=== PATIENT | male | born 1970 | race African-American/Black ===

== ENCOUNTER 2016-11-21 06:43 | Emergency (ER) | payer OTHER ==
[~2016-11-21] VITALS: Ht 175.3 cm; Wt 65.8 kg
[~2016-11-21 06:43] MED LIST: AMLODIPINE BES2.5 MG ORAL; AZITHROMYCIN250 MG ORAL; BENADRYL25 MG ORAL; CHERATUSSIN AC118 ML PO; ERYTHROMYCIN3.5 GM BOTH EYES; HYDROCHLOROTH12.5 M2 ORAL; IBUPROFEN600 MG ORAL; INDOMETHACIN75 MG ORAL; LISINOPRIL5 MG ORAL; PERCOCET 5-3251 EACH ORAL; PERMETHRIN60 GM TOPIC; PREDNISONE20 MG ORAL; VIBRAMYCIN100 MG ORAL
[2016-11-21] MEDS ORDERED: SIMVASTATIN10 MG ORAL (07:03)
[2016-11-21] MEDS ORDERED: INDOMETHACIN75 MG ORAL (07:09)
[2016-11-21] MEDS ORDERED: Ketorolac 60mg Inj IM ONE (07:15)
--- NOTE | 2016-11-21 07:18 | Emergency Room Report ---
History of Present Illness General Chief Complaint: Pain Source: Patient Present Illness HPI [id number] presents with 2 days left knee pain. Worse with waking. No reduced ROM because of pain. Denies fever/chills, overlying erythema/rash. History of gout. Improves with indomethacin. Recently ate "a bunch of oxtail." Exacerbations usually caused by dietary indiscretion. Allergies: Coded Allergies: NO KNOWN ALLERGIES (Unverified Allergy, Unknown, 07/07/15) Patient History Past Medical History: other - gout Past Surgical History: none Pertinent Family History: none Social History: Denies: alcohol use, drug use, smoking Immunizations: UTD Reviewed Nursing Documentation: PMH: Agreed, PSxH: Agreed Nursing Documentation-PMH Past Medical History: No History, Except For Hx Hypertension: Yes Hx Pacemaker: No Hx Asthma: No Hx COPD: No Hx Diabetes: No Hx Cancer: No Hx Gastrointestinal Problems: No Hx Dialysis: No Hx Cerebrovascular Accident: No Hx Seizures: No Review of Systems All Other Systems: negative except mentioned in HPI Physical Exam Vital Signs Date Time Temp Pulse Resp B/P Pulse Ox O2 Delivery O2 Flow Rate FiO2 11/21/16 06:44 97.9 104 19 143/81 98 Room Air Sp02 EP Interpretation: reviewed, normal General Appearance: normal inspection, well appearing, no apparent distress, alert, GCS 15, non-toxic Head: normocephalic, atraumatic Eyes: bilateral eye EOMI, bilateral eye PERRL ENT: normal ENT inspection, hearing grossly normal, normal voice Neck: normal inspection, full range of motion, supple, no bony tend Respiratory: normal inspection, lungs clear, normal breath sounds, no respiratory distress, no retraction, no wheezing Cardiovascular #1: regular rate, rhythm, no edema Gastrointestinal: normal inspection, normal bowel sounds, non tender, soft, no guarding, no hernia Genitourinary: no CVA tenderness Musculoskeletal: other - Left knee: No swelling or effusion. No overlying erythema. Mild warmth to palpation. No reduced ROM Neurologic: normal inspection, alert, oriented x3, responsive, edge burnisher III-XII nml as tested, motor strength/tone normal, speech normal Psychiatric: normal inspection, judgement/insight normal, mood/affect normal Skin: normal inspection, normal color, no rash Medical Decision Making Diagnostic Impression: Primary Impression: Knee pain, left Qualified Codes: M25.562 - Pain in left knee; G89.29 - Other chronic pain ER Course VSS. Afebrile No cellulitis No effusion No pain with movement Low suspicion for acute septic joint Likely gouty flare given PMHx and recent dietary indiscretion Rx Indomethacin Understands to return for fever/chills, worse pain/swelling DC home Last Vital Signs Date Time Temp Pulse Resp B/P Pulse Ox O2 Delivery O2 Flow Rate FiO2 11/21/16 06:44 97.9 104 19 143/81 98 Room Air Status: improved Disposition: HOME, SELF-CARE Condition: Improved Scripts Indomethacin* (INDOMETHACIN*) 75 Mg Capsule.er 75 MG ORAL TWICE A DAY for 15 Days, #30 CAP 0 Refills Prov: MERRITT GAXIOLA M.D. 11/21/16 Additional Instructions: - Take indomethacin as prescribed - If pain worsens, knee gets more swollen, you have fever, return immediately to ER MERRITT GAXIOLA M.D. Nov 21, 2016 07:18
[2016-11-21 07:48] VITALS: BP 143/81
== END 2016-11-21 07:48 | disposition home or self-care (01) ==
LOC: EMR 07:00
DX: M25.562 Pain in left knee (principal); G89.29 Other chronic pain; I10 Essential (primary) hypertension
CPT/HCPCS: 96372; 99283

== ENCOUNTER 2017-03-04 07:30 | Emergency (ER) | payer OTHER ==
[~2017-03-04] VITALS: Ht 175.3 cm; Wt 108.0 kg
[~2017-03-04 07:30] MED LIST changes: +SIMVASTATIN10 MG ORAL
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
[2017-03-04 09:47] VITALS: BP 132/85
[2017-03-04 09:49] VITALS: BP 137/79
== END 2017-03-04 09:51 | disposition home or self-care (01) ==
LOC: EMR 08:00
DX: S16.1XXA Strain of muscle, fascia and tendon at neck level, initial encounter (principal); V43.52XA Car driver injured in collision with other type car in traffic accident, initial encounter; Y92.481 Parking lot as the place of occurrence of the external cause; I10 Essential (primary) hypertension; M50.31 Other cervical disc degeneration, high cervical region
CPT/HCPCS: 72040; 99283

== ENCOUNTER 2017-06-28 22:18 | Emergency (ER) | payer OTHER ==
[~2017-06-28] VITALS: Ht 175.3 cm; Wt 104.3 kg
[2017-06-28 22:30] VITALS: BP 155/101
--- NOTE | 2017-06-28 22:59 | Emergency Room Report ---
History of Present Illness General Chief Complaint: Skin Rash/Abscess Source: Patient Present Illness HPI Patient initially presents with complaints of rash in the upper arm, left flank abdominal area Ongoing for the past 2 days He feels area is more itchy after taking a shower Denies any fevers or chills Patient also complains of a cough and feels that he has flulike symptoms Denies any sore throat denies any vomiting or diarrhea Allergies: Coded Allergies: NO KNOWN ALLERGIES (Unverified Allergy, Unknown, 07/07/15) Patient History Past Medical History: see triage record Pertinent Family History: none Reviewed Nursing Documentation: PMH: Agreed, PSxH: Agreed Nursing Documentation-PMH Hx Hypertension: Yes Hx Pacemaker: No Hx Asthma: No Hx COPD: No Hx Diabetes: No Hx Cancer: No Hx Gastrointestinal Problems: No Hx Dialysis: No Hx Cerebrovascular Accident: No Hx Seizures: No Review of Systems All Other Systems: negative except mentioned in HPI Physical Exam Vital Signs Date Time Temp Pulse Resp B/P (MAP) Pulse Ox O2 Delivery O2 Flow Rate FiO2 06/28/17 22:27 98.6 68 20 155/101 96 Room Air Sp02 EP Interpretation: reviewed, normal General Appearance: well appearing, no apparent distress Head: normocephalic, atraumatic Eyes: bilateral eye PERRL, bilateral eye EOMI ENT: normal pharynx Neck: full range of motion, supple, no meningismus, no bony tend Respiratory: chest non-tender, lungs clear Cardiovascular #1: regular rate, rhythm, no edema Gastrointestinal: non tender, soft Musculoskeletal: normal inspection Neurologic: alert, oriented x3, responsive Skin: other - Small areas of raised rash involving the upper shoulder, no obvious scab formation no obvious linearity to it, is also several areas of small raised red lesions with scab formation in the left abdomen, no obvious dermatomal pathology, Lymphatic: no adenopathy Medical Decision Making Diagnostic Impression: Primary Impression: Rash and other nonspecific skin eruption Additional Impression: Bronchitis ER Course Patient findings are in line with a nonspecific dermatitis he reports using a new soap possible insect bite as well he reports that he was given a cream last time which helped him Patient's lung sounds are clear appears to have likely viral upper respiratory infection and will have symptomatic treatment Last Vital Signs Date Time Temp Pulse Resp B/P (MAP) Pulse Ox O2 Delivery O2 Flow Rate FiO2 06/28/17 22:27 98.6 68 20 155/101 96 Room Air Status: unchanged Disposition: HOME, SELF-CARE Condition: Stable Additional Instructions: Patient is provided with the discharge instructions notified to follow up with primary doctor in the next 2-3 days otherwise return to the er with any worsening symptoms. Please note that this report is being documented using [employer] technology. This can lead to erroneous entry secondary to incorrect interpretation by the dictating instrument. ROSELINE MASTERSON D.O. Jun 28, 2017 22:59
[2017-06-28] MEDS ORDERED: PERMETHRIN60 GM TOPIC (23:01)
[2017-06-28] MEDS ORDERED: BENADRYL25 MG ORAL (23:01)
[2017-06-28] MEDS ORDERED: ROBITUSSIN COU237 M1 PO (23:01)
[2017-06-28 23:05] VITALS: BP 160/95
== END 2017-06-28 23:05 | disposition home or self-care (01) ==
LOC: EMR 22:41
DX: R21 Rash and other nonspecific skin eruption (principal); J40 Bronchitis, not specified as acute or chronic; I10 Essential (primary) hypertension
CPT/HCPCS: 99282

== ENCOUNTER 2017-11-19 14:12 | Emergency (ER) | payer OTHER ==
[~2017-11-19] VITALS: Ht 175.3 cm; Wt 108.9 kg
[~2017-11-19 14:12] MED LIST changes: +ROBITUSSIN COU237 M1 PO
[2017-11-19 14:41] VITALS: BP 145/103
--- NOTE | 2017-11-19 15:40 | Emergency Room Report ---
History of Present Illness General Chief Complaint: Earache Source: Patient Present Illness HPI 46-year-old male presents to the emergency department complaining of 10 out of 10 in severity left ear pain 3 days. Patient reports he felt his ear pop about a week ago and did not think anything of it. Patient reports some hot flashes he also reports pain radiating up into his head and and is jaw left side of his mouth. Patient states that initially he thought maybe he had a tooth infection he was evaluated by his dentist x-rays were performed and no infection was found. Denies drainage/discharge from the ear, external ear tenderness or recent trauma to the ear. Patient denies neck or back pain.Denies sore throat, high fevers, lethargy, neck pain/stiffness, irritability, photophobia dehydration, N/V/D. Denies Cp, Palpitations, LOC, AMS, seizures, paresthesias, or changes in Hearing or vision, no Sudden severe CABRAELS. Allergies: Coded Allergies: NO KNOWN ALLERGIES (Unverified Allergy, Unknown, 07/07/15) Patient History Past Medical History: see triage record Past Surgical History: none Pertinent Family History: none Reviewed Nursing Documentation: PMH: Agreed; PSxH: Agreed Nursing Documentation-PMH Past Medical History: No History, Except For Hx Hypertension: Yes Hx Pacemaker: No Hx Asthma: No Hx COPD: No Hx Diabetes: No Hx Cancer: No Hx Gastrointestinal Problems: No Hx Dialysis: No Hx Cerebrovascular Accident: No Hx Seizures: No Review of Systems All Other Systems: negative except mentioned in HPI Physical Exam Vital Signs Date Time Temp Pulse Resp B/P (MAP) Pulse Ox O2 Delivery O2 Flow Rate FiO2 11/19/17 14:26 98.1 59 18 145/103 96 Room Air 98.1 Sp02 EP Interpretation: reviewed, normal General Appearance: no apparent distress, alert, GCS 15, non-toxic Head: normocephalic, atraumatic Eyes: bilateral eye normal inspection, bilateral eye PERRL ENT: hearing grossly normal, normal voice, uvula midline, moist mucus membranes , nasal congestion - left sided., other - Left TM is erythematous and bulging there is no external ear tenderness to palpation the canal is within normal limits no discharge or drainage. Neck: full range of motion, no meningismus, no bony tend Respiratory: lungs clear, normal breath sounds, speaking full sentences Cardiovascular #1: regular rate, rhythm Musculoskeletal: back normal, gait/station normal, normal range of motion, non- tender Neurologic: alert, oriented x3, responsive, motor strength/tone normal, sensory intact, normal gait, speech normal, grossly normal Psychiatric: judgement/insight normal Skin: normal color, no rash, warm/dry, well hydrated Lymphatic: no adenopathy Medical Decision Making PA Attestation Dr. Grayson is my supervising Physician whom patient management has been discussed with. Diagnostic Impression: Primary Impression: Otitis media Qualified Codes: H66.002 - Acute suppurative otitis media without spontaneous rupture of ear drum, left ear ER Course 46-year-old male presents to the emergency department complaining of 10 out of 10 in severity left ear pain 3 days. Patient reports he felt his ear pop about a week ago and did not think anything of it. Patient reports some hot flashes he also reports pain radiating up into his head and and is jaw left side of his mouth. Patient states that initially he thought maybe he had a tooth infection he was evaluated by his dentist x-rays were performed and no infection was found. Denies drainage/discharge from the ear, external ear tenderness or recent trauma to the ear. Patient denies neck or back pain.Denies sore throat, high fevers, lethargy, neck pain/stiffness, irritability, photophobia dehydration, N/V/D. Denies Cp, Palpitations, LOC, AMS, seizures, paresthesias, or changes in Hearing or vision, no Sudden severe CABRALES. . Ddx considered but are not limited to OM, OE, mastoiditis, TM perforation, FB Vital signs: are WNL, pt. is afebrile H&PE are most consistent with otitis media ORDERS: none required at this time, the diagnosis is clinical -OTOSCOPY: Left TM is erythematous and bulging there is no external ear tenderness to palpation the canal is within normal limits no discharge or drainage. ED INTERVENTIONS: None required at this time. DISCHARGE: At this time pt. is stable for d/c to home. With PO ABX. Will provide printed patient care instructions, and any necessary prescriptions. Care plan and follow up instructions have been discussed with the patient prior to discharge. RX: Augmentin Suspension 600mg/5ml - take 2.5ml BID x 10 days Last Vital Signs Date Time Temp Pulse Resp B/P (MAP) Pulse Ox O2 Delivery O2 Flow Rate FiO2 11/19/17 14:41 98.1 59 18 145/103 96 Room Air 98.1 Disposition: HOME, SELF-CARE Condition: Stable Scripts Tetracaine HCl/Pf (TETRACAINE 0.5% STERI-UNIT LEWIS) 4 Ml Drops 2 ML OT TID, #4 ML Prov: Anju Pastor 11/19/17 Acetaminophen* (TYLENOL EXTRA STRENGTH*) 500 Mg Tablet 500 MG ORAL Q6H PRN for Mild Pain/Temp > 100.5, #20 TAB 0 Refills Prov: Anju Pastor 11/19/17 Oxymetazoline Hcl* (AFRIN*) 15 Ml Mist 2 SPRAY NASAL TWICE A DAY, #15 ML Prov: Anju Pastor 11/19/17 Amoxicillin* (AMOXIL*) 500 Mg Capsule 500 MG ORAL BID for 10 Days, #20 CAP Prov: Anju Pastor 11/19/17 Patient Instructions: Otitis Media, Adult, [place]-Cily Additional Instructions: Take medications as directed. Follow up with a Primary Care Provider in 3-5 days, even if your symptoms have resolved. --Please review list of primary care clinics, if you do not already have a primary care provider Return sooner to ED if new symptoms occur, or current symptoms become worse. - Please note that this Emergency Department Report was dictated using [employer] technology software, occasionally this can lead to erroneous entry secondary to interpretation by the dictation equipment. Anju Pastor Nov 19, 2017 15:40
[2017-11-19] MEDS ORDERED: TETRACAINE 0.5% OT (15:47)
[2017-11-19] MEDS ORDERED: AFRIN15 ML NASAL (15:47)
[2017-11-19] MEDS ORDERED: TYLENOL EXTRA500 MG ORAL (15:47)
[2017-11-19] MEDS ORDERED: AMOXICILLIN500 MG ORAL (15:47)
[2017-11-19 15:57] VITALS: BP 145/103
== END 2017-11-19 16:30 | disposition home or self-care (01) ==
LOC: EMR 16:10
DX: H66.92 Otitis media, unspecified, left ear (principal); I10 Essential (primary) hypertension
CPT/HCPCS: 99284

== ENCOUNTER 2018-04-24 22:11 | Emergency (ER) | payer OTHER ==
[~2018-04-24] VITALS: Ht 175.3 cm; Wt 111.1 kg
[~2018-04-24 22:11] MED LIST changes: +AFRIN15 ML NASAL; +AMOXICILLIN500 MG ORAL; +INDOCIN25 MG ORAL; +TETRACAINE 0.5% OT; +TYLENOL EXTRA500 MG ORAL
[2018-04-24 23:15] VITALS: BP 129/89
[2018-04-24] MEDS ORDERED: Indomethacin 25mg cap ORAL STA (23:20)
[2018-04-25] LABS: APPEARANCE,URINE CLEAR; BASOPHILS % (AUTO) 1.2 % (0.0-2.0); BILIRUBIN, URINE NEGATIVE (NEGATIVE); COLOR,URINE PALE YELLOW; EOSINOPHILS % (AUTO) 1.8 % (0.0-3.0); GLUCOSE, URINE (UA) NEGATIVE (NEGATIVE); HEMATOCRIT 51.6 % (42.0-52.0); HEMOGLOBIN 16.6 G/DL (14.2-18.0); KETONES,URINE NEGATIVE (NEGATIVE); LEUKOCYTE ESTERASE ,URINE NEGATIVE (NEGATIVE); LYMPHOCYTES % (AUTO) 44.8 % (20.0-45.0); MEAN CORPUSCULAR VOLUME 87 FL (80-99); MONOCYTES % (AUTO) 11.4 % (1.0-10.0); NEUTROPHILS % (AUTO) 40.7 % (45.0-75.0); NITRITE,URINE NEGATIVE (NEGATIVE); PH,URINE 6 (4.5-8.0); PLATELET COUNT 307 K/UL (150-450); PROTEIN,URINE NEGATIVE (NEGATIVE); RED BLOOD COUNT 5.91 M/UL (4.70-6.10); RED CELL DISTRIBUTION WIDTH 11.7 % (11.6-14.8); UROBILINOGEN,URINE NORMAL MG/DL (0.0-1.0); WHITE BLOOD COUNT 6.1 K/UL (4.8-10.8)
[2018-04-25 00:14] LABS: ANION GAP 6 mmol/L (5-15); BLOOD UREA NITROGEN 20 mg/dL (7-18); CALCIUM 9.8 MG/DL (8.5-10.1); CARBON DIOXIDE 33 MMOL/L (21-32); CHLORIDE 99 MMOL/L (98-107); CREATININE 1.3 MG/DL (0.55-1.30); POTASSIUM 3.6 MMOL/L (3.5-5.1); SODIUM 138 MMOL/L (136-145)
[2018-04-25 00:29] LABS: ALANINE AMINOTRANSFERASE 42 U/L (12-78); ALBUMIN 3.7 G/DL (3.4-5.0); ALBUMIN/GLOBULIN RATIO 0.8 (1.0-2.7); ALKALINE PHOSPHATASE 99 U/L (46-116); ASPARTATE AMINO TRANSFERASE 19 U/L (15-37); BILIRUBIN,TOTAL 0.3 MG/DL (0.2-1.0); CREATINE KINASE 515 U/L (26-308)
--- NOTE | 2018-04-25 01:17 | Emergency Room Report ---
History of Present Illness General Chief Complaint: Pain Source: Patient Present Illness HPI Patient presents with left ankle pain. Patient has history of gout. He denies any fevers. He has pain with walking. He ran out of his medication and his Dr. has not written for refills of his prescriptions. Not taking allopurinol at this time. In past, toe has been involved. Pain rated 10/10, burning and aching. Not radiating. He is requesting indocin. H/O HTN and taking HCTZ (and other meds). H/O spinal stenosis. Back not a problem at this time. No trauma. No rashes. No dysuria. No CABRALES. Denies chest pain or dyspnea. No calf pain. 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 Reviewed Nursing Documentation: PMH: Agreed; PSxH: Agreed Nursing Documentation-PMH Hx Hypertension: Yes Hx Pacemaker: No Hx Asthma: No Hx COPD: No Hx Diabetes: No Hx Cancer: No Hx Gastrointestinal Problems: No Hx Dialysis: No Hx Cerebrovascular Accident: No Hx Seizures: No Review of Systems All Other Systems: negative except mentioned in HPI Physical Exam Vital Signs Date Time Temp Pulse Resp B/P (MAP) Pulse Ox O2 Delivery O2 Flow Rate FiO2 04/24/18 22:47 98.5 85 16 129/89 86 Room Air 98.4 Sp02 EP Interpretation: reviewed, abnormal - doubt accuracy - reviewed by me General Appearance: well appearing, no apparent distress, GCS 15 Head: normocephalic Eyes: bilateral eye normal inspection, bilateral eye PERRL ENT: moist mucus membranes Neck: supple Respiratory: lungs clear, normal breath sounds Cardiovascular #1: regular rate, rhythm Cardiovascular #2: 2+ radial (R) Gastrointestinal: normal inspection, normal bowel sounds, non tender, no mass, non-distended Musculoskeletal: back normal, normal range of motion, swelling - and tenderness L ankle, with some swelling, other - walks with limp Neurologic: alert, oriented x3, sensory intact Psychiatric: mood/affect normal Skin: normal inspection, warm/dry Medical Decision Making Diagnostic Impression: Primary Impression: Gout of ankle Qualified Codes: M10.072 - Idiopathic gout, left ankle and foot ER Course Patient presents with ankle pain with h/o gout. DDx: septic joint, renal failure, gout amongst others. No trauma, therefore x-rays not indicated. Evaluation with labs. Treatment with indocin and colchicine. Tolerating related pain without distress. O2 sat doubted by me as no respiratory symptoms or signs of PE/pulmonary problem. Labs with elevated uric acid. Normal WBC. Elevated BUN and bicarb. Improved with treatment. States pain greatly improved. No resp distress. Patient stable for outpatient observation and treatment. D/C pulse ox noted after patient left department. Contacted patient and asked him to return to have repeat VS done. He stated he has no SOB and will return this afternoon to have VS rechecked. Notified ED of plan for return visit for VS check. (Return VS with normal O2 sat.) Laboratory Tests Test 04/24/18 23:45 04/25/18 00:10 White Blood Count 6.1 K/UL (4.8-10.8) Red Blood Count 5.91 M/UL (4.70-6.10) Hemoglobin 16.6 G/DL (14.2-18.0) Hematocrit 51.6 % (42.0-52.0) Mean Corpuscular Volume 87 FL (80-99) Mean Corpuscular Hemoglobin 28.1 PG (27.0-31.0) Mean Corpuscular Hemoglobin Concent 32.2 G/DL (32.0-36.0) Red Cell Distribution Width 11.7 % (11.6-14.8) Platelet Count 307 K/UL (150-450) Mean Platelet Volume 7.5 FL (6.5-10.1) Neutrophils (%) (Auto) 40.7 % (45.0-75.0) L Lymphocytes (%) (Auto) 44.8 % (20.0-45.0) Monocytes (%) (Auto) 11.4 % (1.0-10.0) H Eosinophils (%) (Auto) 1.8 % (0.0-3.0) Basophils (%) (Auto) 1.2 % (0.0-2.0) Prothrombin Time 10.4 SEC (9.30-11.50) Prothrombin Time INR 1.0 (0.9-1.1) PTT 31 SEC (23-33) Urine Color Pale yellow Urine Appearance Clear Urine pH 6 (4.5-8.0) Urine Specific [place] 1.020 (1.005-1.035) Urine Protein Negative (NEGATIVE) Urine Glucose (UA) Negative (NEGATIVE) Urine Ketones Negative (NEGATIVE) Urine Blood Negative (NEGATIVE) Urine Nitrite Negative (NEGATIVE) Urine Bilirubin Negative (NEGATIVE) Urine Urobilinogen Normal MG/DL (0.0-1.0) Urine Leukocyte Esterase Negative (NEGATIVE) Sodium Level 138 MMOL/L (136-145) Potassium Level 3.6 MMOL/L (3.5-5.1) Chloride Level 99 MMOL/L (98-107) Carbon Dioxide Level 33 MMOL/L (21-32) H Anion Gap 6 mmol/L (5-15) Blood Urea Nitrogen 20 mg/dL (7-18) H Creatinine 1.3 MG/DL (0.55-1.30) Estimate Glomerular Filtration Rate > 60 mL/min (>60) Glucose Level 101 MG/DL (74-106) Calcium Level 9.8 MG/DL (8.5-10.1) Total Bilirubin 0.3 MG/DL (0.2-1.0) Aspartate Amino Transferase (AST) 19 U/L (15-37) Alanine Aminotransferase (ALT) 42 U/L (12-78) Alkaline Phosphatase 99 U/L (46-116) Total Creatine Kinase 515 U/L (26-308) H Troponin I 0.000 ng/mL (0.000-0.056) Pro-B-Type Natriuretic Peptide < 5 pg/mL (0-125) Total Protein 8.1 G/DL (6.4-8.2) Albumin 3.7 G/DL (3.4-5.0) Globulin 4.4 g/dL Albumin/Globulin Ratio 0.8 (1.0-2.7) L Uric Acid 10.7 MG/DL (2.6-7.2) H Last Vital Signs Date Time Temp Pulse Resp B/P (MAP) Pulse Ox O2 Delivery O2 Flow Rate FiO2 04/25/18 01:50 98.5 16 134/87 86 Room Air 98.4 04/24/18 22:47 85 Patient advised to return for repeat O2 sat. Patient did return and O2 sat was normal. Status: improved Disposition: HOME, SELF-CARE Condition: Improved Scripts Allopurinol* (ALLOPURINOL*) 300 Mg Tablet 300 MG ORAL DAILY, #20 TAB 2 Refills Prov: Laith Graf M.D. 04/25/18 Colchicine (Colchicine) 0.6 Mg Capsule 0.6 MG PO Q6HR, #10 CAP 2 Refills Prov: Laith Graf M.D. 04/25/18 Indomethacin (INDOCIN) 25 Mg/5 Ml Oral.susp 25 MG PO Q8HR, #30 ML 2 Refills Prov: Laith Graf M.D. 04/25/18 Referrals: NOT CHOSEN [facility]/,REFERRING (PCP) Liath Graf M.D. Apr 25, 2018 01:16
[2018-04-25] MEDS ORDERED: COLCHICINE0.6 M1 PO (01:20)
[2018-04-25] MEDS ORDERED: INDOCIN25 MG/5 ML PO (01:20)
[2018-04-25] MEDS ORDERED: ALLOPURINOL300 M1 ORAL (01:20)
[2018-04-25 01:50] VITALS: BP 134/87
== END 2018-04-25 01:51 | disposition home or self-care (01) ==
LOC: EMR 23:36
DX: M10.072 Idiopathic gout, left ankle and foot (principal); M25.572 Pain in left ankle and joints of left foot; I10 Essential (primary) hypertension; Z79.899 Other long term (current) drug therapy
CPT/HCPCS: 36415; 80053; 81003; 82550; 83880; 84484; 84550; 85025; 85610; 85730; 99283

== ENCOUNTER 2018-04-25 18:04 | Emergency (ER) | payer OTHER ==
[~2018-04-25] VITALS: Ht 175.3 cm; Wt 111.1 kg
[~2018-04-25 18:04] MED LIST changes: +ALLOPURINOL300 M1 ORAL; +COLCHICINE0.6 M1 PO; +INDOCIN25 MG/5 ML PO
[2018-04-25 19:03] VITALS: BP 137/88
[2018-04-25 19:04] VITALS: BP 137/88
== END 2018-04-25 19:04 | disposition home or self-care (01) ==
LOC: EMR 18:10
DX: Z53.21 Procedure and treatment not carried out due to patient leaving prior to being seen by health care provider (principal)
CPT/HCPCS: 99281

== ENCOUNTER 2018-12-24 07:13 | Emergency (ER) | payer OTHER ==
[~2018-12-24] VITALS: Ht 175.3 cm; Wt 108.9 kg
[2018-12-24] MEDS ORDERED: Indomethacin 25mg cap ORAL STA (07:34)
--- NOTE | 2018-12-24 07:34 | Emergency Room Report ---
History of Present Illness General Chief Complaint: Lower Extremity Injury Source: Patient Present Illness HPI He fell 3 days ago onto his left knee. There is increased swelling and pain there. He has no more pain medication (aside from chronic [place]) - Indocin. There's no fever or chills. Able to ambulate with cane. Pain is mainly knee cap , but also feels like his gout. Pain rated 10/10, aching, not radiating, constant. Patient has a history of gout. Spinal stenosis. Due for injection next week. No change in back issues. Allergies: Coded Allergies: NO KNOWN ALLERGIES (Unverified Allergy, Unknown, 07/07/15) Patient History Past Medical History: see triage record Social History Narrative drove himself here Reviewed Nursing Documentation: PMH: Agreed; PSxH: Agreed Nursing Documentation-PMH Hx Hypertension: Yes Hx Pacemaker: No Hx Asthma: No Hx COPD: No Hx Diabetes: No Hx Cancer: No Hx Gastrointestinal Problems: No Hx Dialysis: No Hx Cerebrovascular Accident: No Hx Seizures: No Review of Systems Constitutional: Denies: fever Musculoskeletal: Reports: see HPI Skin: Reports: see HPI Neurological: Reports: see HPI Physical Exam Vital Signs Date Time Temp Pulse Resp B/P (MAP) Pulse Ox O2 Delivery O2 Flow Rate FiO2 12/24/18 07:17 97.3 75 16 96 Room Air Sp02 EP Interpretation: reviewed, normal General Appearance: well appearing, no apparent distress Head: normocephalic, atraumatic Eyes: bilateral eye normal inspection, bilateral eye PERRL, bilateral eye EOMI ENT: hearing grossly normal, normal voice, moist mucus membranes Neck: full range of motion, supple Respiratory: no respiratory distress, speaking full sentences Gastrointestinal: normal inspection Musculoskeletal: no calf tenderness, swelling - Left knee effusion., other - Passive range of motion with minimal tenderness but decreased flexion Neurologic: alert, oriented x3, grossly normal Psychiatric: mood/affect normal Skin: no rash Medical Decision Making Diagnostic Impression: Primary Impression: Knee contusion Additional Impression: Gout attack ER Course Patient presents with left knee pain after an injury. Differential includes fracture, contusion, underlying joint effusion amongst others. He relates with a cane. X-rays are indicated and also analgesia. Xray with effusion, no fx. Peña applied by RN. Position and tension good. Neurovasc normal checked by me. Discussed findings. Patient states pain improved. Patient stable for outpatient observation and treatment. Other X-Ray Diagnostic Results Other X-Ray Diagnostic Results : X-Ray ordered: Left knee # of Views/Limited Vs Complete: 3 View Indication: Other EP Interpretation: Yes Interpretation: no dislocation, no fractures, other - effusion Impression: Other Electronically Signed by: Electronically signed by Laith Graf MD Last Vital Signs Date Time Temp Pulse Resp B/P (MAP) Pulse Ox O2 Delivery O2 Flow Rate FiO2 12/24/18 08:55 97.4 76 16 135/78 96 Room Air Status: improved Disposition: HOME, SELF-CARE Condition: Improved Scripts Indomethacin (INDOCIN) 25 Mg/5 Ml Oral.susp 25 MG PO Q8HR PRN for For Pain, #20 ML Prov: Laith Graf MD 12/24/18 Colchicine (Colchicine) 0.6 Mg Capsule 0.6 MG PO Q6HR, #20 CAP 1 Refill Prov: Laith Graf MD 12/24/18 Laith Graf MD December 24, 2018 07:34
--- NOTE | 2018-12-24 07:36 | NUR ---
ED Nurse Note: pt came in due to pain on the left knee. pt stated that he fell from a chair with a roller in his house while watching domo. pt denies head trauma. pt is complaining of 10/10 pain. ermd on bedside. pt stated he took tylenol 500 at home and didnt help. ice pack was placed on the patients left knee. will continue to monitor
[2018-12-24] MEDS ORDERED: Acetaminophen 500mg (ES) tab PO ONE (07:45)
--- NOTE | 2018-12-24 07:49 | NUR ---
ED Nurse Note: pt medicated and tolerated well
--- NOTE | 2018-12-24 08:06 | NUR ---
ED Nurse Note: xray on bedside
[2018-12-24] MEDS ORDERED: INDOCIN25 MG/5 ML PO (08:50)
[2018-12-24] MEDS ORDERED: COLCHICINE0.6 M1 PO (08:50)
[2018-12-24 08:55] VITALS: BP 135/78
--- NOTE | 2018-12-24 08:55 | NUR ---
ER DISCHARGE NOTE: Patient is cleared to be discharged per ERMD, pt is aox4, on room air, with stable vital signs. pt was given dc and prescription instructions, pt was able to verbalize understanding, pt id band removed without complications. pt is able to ambulate with steady gait with cane. pt took all belongings.
--- NOTE | 2018-12-24 10:51 | Diagnostic Imaging Report ---
INDICATION: Knee Pain COMPARISON: None 3 views of the left knee were obtained. FINDINGS: No acute fracture, malalignment, or joint effusion are identified. Joint space is relatively well-maintained. There is prepatellar soft tissue swelling. Impression: No acute fracture. Prepatellar soft tissue swelling
== END 2018-12-24 08:55 | disposition home or self-care (01) ==
LOC: EMR 07:40
DX: S80.02XA Contusion of left knee, initial encounter (principal); M10.9 Gout, unspecified; I10 Essential (primary) hypertension; X58.XXXA Exposure to other specified factors, initial encounter; Y92.9 Unspecified place or not applicable
CPT/HCPCS: 99283

== ENCOUNTER 2019-04-25 08:14 | Emergency (ER) | payer OTHER ==
[~2019-04-25] VITALS: Ht 175.3 cm; Wt 106.6 kg
[2019-04-25 08:23] VITALS: BP 126/78
--- NOTE | 2019-04-25 09:10 | Emergency Room Report ---
History of Present Illness General Chief Complaint: Eye Problems Source: Patient Present Illness HPI The patient states that he is noted some itchy lesions on both of his lower legs. He did note this about 3 days ago. He states he primarily itch at nighttime. He admits that he did go to an outdoor barbecue in a friend's backyard right around the time he noted the lesions. He denies fever or chills. He denies nausea or vomiting. He states they are only located on his lower legs and a couple on his arms. He states he also recently had some pain in his right ear but that has since resolved. He had noted that his eyes were red previously but that is also resolved. He states that he is out of his amlodipine and is requesting a refill. He has no other complaints. Allergies: Coded Allergies: NO KNOWN ALLERGIES (Unverified Allergy, Unknown, 07/07/15) Patient History Past Medical History: see triage record, HTN, other - Gout, spinal stenosis Social History: Denies: smoking, alcohol use, drug use Reviewed Nursing Documentation: PMH: Agreed; PSxH: Agreed Nursing Documentation-PMH Past Medical History: No History, Except For Hx Hypertension: Yes Hx Pacemaker: No Hx Asthma: No Hx COPD: No Hx Diabetes: No Hx Cancer: No Hx Gastrointestinal Problems: No Hx Dialysis: No Hx Cerebrovascular Accident: No Hx Seizures: No Review of Systems All Other Systems: negative except mentioned in HPI Physical Exam Vital Signs Date Time Temp Pulse Resp B/P (MAP) Pulse Ox O2 Delivery O2 Flow Rate FiO2 04/25/19 08:23 98.2 81 19 126/78 98 Room Air Sp02 EP Interpretation: reviewed, normal General Appearance: no apparent distress, alert, GCS 15, non-toxic Head: normocephalic, atraumatic Eyes: bilateral eye normal inspection ENT: hearing grossly normal, normal pharynx, no angioedema, normal voice, TMs + canals normal Neck: full range of motion, supple/symm/no masses Respiratory: no respiratory distress, no retraction, no accessory muscle use, speaking full sentences Rectal: deferred Musculoskeletal: back normal, gait/station normal, normal range of motion Neurologic: alert, oriented x3, responsive, motor strength/tone normal, sensory intact, speech normal Psychiatric: judgement/insight normal, memory normal, mood/affect normal, no suicidal/homicidal ideation Skin: other - Scattered erythematous lesions with associated excoriations on Bilateral lower legs. Several scattered lesions on lower arms. Medical Decision Making Diagnostic Impression: Primary Impression: Insect bites and stings Additional Impression: Hypertension ER Course This patient's lesions on his exam are consistent with insect bites. I suspect mosquito bites. They are only located on the exposed areas of the skin. They do not appear infected or pathologic. Patient also requested a refill of his amlodipine. I did educate the patient that he would need to follow-up closely with his primary care physician for his ongoing evaluation of his hypertension. Overall, the patient is well-appearing and nontoxic. The patient is given close return precautions and follow-up instructions. Last Vital Signs Date Time Temp Pulse Resp B/P (MAP) Pulse Ox O2 Delivery O2 Flow Rate FiO2 04/25/19 08:26 97.7 82 19 142/87 (105) 99 Room Air Status: improved Disposition: HOME, SELF-CARE Condition: Improved Referrals: NON PHYSICIAN (PCP) Kamila Thompson DO Apr 25, 2019 09:10
[2019-04-25] MEDS ORDERED: AMLODIPINE BESYL5 MG ORAL (09:13)
[2019-04-25] MEDS ORDERED: HYDROCORTISONE-30 GM TOPIC (09:13)
[2019-04-25 09:21] VITALS: BP 142/87
== END 2019-04-25 09:21 | disposition home or self-care (01) ==
LOC: EMR 08:57
DX: S80.862A Insect bite (nonvenomous), left lower leg, initial encounter (principal); S80.861A Insect bite (nonvenomous), right lower leg, initial encounter; I10 Essential (primary) hypertension; M10.9 Gout, unspecified; M48.00 Spinal stenosis, site unspecified; W57.XXXA Bitten or stung by nonvenomous insect and other nonvenomous arthropods, initial encounter; Y92.007 Garden or yard of unspecified non-institutional (private) residence as the place of occurrence of the external cause
CPT/HCPCS: 99282

== ENCOUNTER 2019-05-17 16:27 | Emergency (ER) | payer OTHER ==
[~2019-05-17] VITALS: Ht 175.3 cm; Wt 108.9 kg
[~2019-05-17 16:27] MED LIST changes: +AMLODIPINE BESYL5 MG ORAL; +HYDROCORTISONE-30 GM TOPIC
[2019-05-17 16:48] VITALS: BP 155/85
--- NOTE | 2019-05-17 16:50 | NUR ---
ED Nurse Note: pt walked in from home c/o gout flare up . pt c/o of rt elbow swelling and wants pain meds. awaiting ermd eval and orders.
--- NOTE | 2019-05-17 17:24 | Emergency Room Report ---
History of Present Illness General Chief Complaint: Pain Source: Patient Present Illness HPI 48 YO male presents to the ED c/o 05/18 in severity pain and swelling of right elbow x 1 day. Pt. has hx of gout. Pt. is prescribed indomethacin however he is out of refills for his medication. Patient denies trauma or fall he denies fevers, chills, recent open wounds near the affected extremity. Patient reports severe 10 out of 10 in severity superficial tenderness to very light touch. Denies numbness tingling or loss of sensation or gross motor movements of the extremities, incontinence of bowel or bladder. Denies CP, Palpitations, LOC, AMS , dizziness, Changes in Vision, weakness or a sudden severe headache. Allergies: Coded Allergies: NO KNOWN ALLERGIES (Unverified Allergy, Unknown, 07/07/15) Patient History Past Medical History: see triage record, HTN, other - gout Past Surgical History: other - eye surgery Immunizations: UTD Reviewed Nursing Documentation: PMH: Agreed; PSxH: Agreed Nursing Documentation-PMH Past Medical History: No History, Except For Hx Hypertension: Yes Hx Pacemaker: No Hx Asthma: No Hx COPD: No Hx Diabetes: No Hx Cancer: No Hx Gastrointestinal Problems: No Hx Dialysis: No Hx Cerebrovascular Accident: No Hx Seizures: No Review of Systems All Other Systems: negative except mentioned in HPI Physical Exam Vital Signs Date Time Temp Pulse Resp B/P (MAP) Pulse Ox O2 Delivery O2 Flow Rate FiO2 05/17/19 16:34 98.2 66 17 155/85 (108) 99 Room Air Sp02 EP Interpretation: reviewed, normal General Appearance: alert, GCS 15, non-toxic, mild distress Head: normocephalic, atraumatic Eyes: bilateral eye normal inspection, bilateral eye PERRL ENT: hearing grossly normal, normal voice Neck: full range of motion Respiratory: lungs clear, normal breath sounds, speaking full sentences Cardiovascular #1: regular rate, rhythm, normal capillary refill Musculoskeletal: back normal, gait/station normal, normal range of motion, other - Swelling, erythema, warmth, and moderate ttp to superficial/light touch of the right elbow, no bruises or open wounds. Neurologic: alert, oriented x3, responsive, motor strength/tone normal, sensory intact, speech normal, grossly normal Psychiatric: judgement/insight normal Skin: other - Swelling, erythema, warmth, - right elbow, no bruises or open wounds. Lymphatic: no adenopathy Medical Decision Making PA Attestation Dr. Gale Is my supervising Physician whom patient management has been discussed with. Diagnostic Impression: Primary Impression: Gout of right elbow Qualified Codes: M10.9 - Gout, unspecified ER Course 48 YO male presents to the ED c/o 05/18 in severity pain and swelling of right elbow x 1 day. Pt. has hx of gout. Pt. is prescribed indomethacin however he is out of refills for his medication. Patient denies trauma or fall he denies fevers, chills, recent open wounds near the affected extremity. Patient reports severe 10 out of 10 in severity superficial tenderness to very light touch. Denies numbness tingling or loss of sensation or gross motor movements of the extremities, incontinence of bowel or bladder. Denies CP, Palpitations, LOC, AMS , dizziness, Changes in Vision, weakness or a sudden severe headache. Ddx considered but are not limited to cellulitis, Septic joint, pseudogout fracture, d/L, gout Vital signs: are WNL, pt. is afebrile H&PE are most consistent with recurrent gout attack. ORDERS: none required at this time, the diagnosis is clinical ED INTERVENTIONS: --1.2 Colchicine pO -Indomethacin PO -I do not identify an emergent condition at this time. With current presentation , pt. is stable for close outpatient follow up and conservative treatment. D/ w pt. to return promptly to ED with worsening or new symptoms.- Pt. verbalizes' understanding and agreement with proposed treatment plan.proposed treatment plan. DISCHARGE: At this time pt. is stable for d/c to home. Will provide printed patient care instructions, and any necessary prescriptions. Care plan and follow up instructions have been discussed with the patient prior to discharge. Last Vital Signs Date Time Temp Pulse Resp B/P (MAP) Pulse Ox O2 Delivery O2 Flow Rate FiO2 05/17/19 16:48 98.2 17 155/85 99 Room Air 05/17/19 16:34 66 Disposition: HOME, SELF-CARE Condition: Stable Scripts Colchicine (Colchicine) 0.6 Mg Capsule 0.6 MG PO ONCE, #1 CAP Prov: Anju Pastor 05/17/19 Indomethacin (INDOMETHACIN) 25 Mg Capsule 25 MG PO Q8HR, #20 CAP 1 Refill Prov: Anju Pastor 05/17/19 Patient Instructions: Gout, [id number] Additional Instructions: Take medications as directed. Take second dose of colchicine 1 hour after taking your first dose in the ED.* * Both medications are known to cause GI upset and increased risk of GI bleeding , return immediately if you have blood in the stool or black stools Follow up with a Primary Care Provider in 3-5 days, even if your symptoms have resolved. --Please review list of primary care clinics, if you do not already have a primary care provider Return sooner to ED if new symptoms occur, or current symptoms become worse. - Please note that this Emergency Department Report was dictated using [employer] estimator technology software, occasionally this can lead to erroneous entry secondary to interpretation by the dictation equipment. Anju Pastor May 17, 2019 17:24
[2019-05-17] MEDS ORDERED: INDOMETHACIN25 MG PO (17:27)
[2019-05-17] MEDS ORDERED: COLCHICINE0.6 M1 PO (17:27)
[2019-05-17 17:56] VITALS: BP 155/85
--- NOTE | 2019-05-17 17:58 | NUR ---
ER DISCHARGE NOTE: Patient is cleared to be discharged per ERMD, pt is aox4, on room air, with stable vital signs. pt was given dc and prescription instructions, pt was able to verbalize understanding, pt id band without complications. pt is able to ambulate with steady gait. pt took all belongings.
[2019-05-17] MEDS ORDERED: Indomethacin 75 MG CAPSULE.ER ORAL SCH (18:00)
== END 2019-05-17 17:58 | disposition home or self-care (01) ==
LOC: EMR 17:24
DX: M10.9 Gout, unspecified (principal); I10 Essential (primary) hypertension
CPT/HCPCS: 99282

== ENCOUNTER 2019-06-24 22:30 | Emergency (ER) | payer OTHER ==
[~2019-06-24] VITALS: Ht 175.3 cm; Wt 108.9 kg
[~2019-06-24 22:30] MED LIST changes: +INDOMETHACIN25 MG PO
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
[2019-06-24 23:03] VITALS: BP 110/77
[2019-06-24] MEDS ORDERED: CYCLOBENZAPRINE10 MG ORAL (23:05)
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
[2019-06-24 23:09] VITALS: BP 110/77
--- NOTE | 2019-06-24 23:09 | NUR ---
ED Nurse Note: Pt cleared by health care Provider for discharge. DC instructions/prescription was given and explained to pt and verbalized understanding of teachings. All medical deviecs such as ID band removed. Pt is AAO x4, ambulatory and left with all personal belongings.
== END 2019-06-24 23:13 | disposition home or self-care (01) ==
LOC: EMR 22:54
DX: S16.1XXA Strain of muscle, fascia and tendon at neck level, initial encounter (principal); S39.012A Strain of muscle, fascia and tendon of lower back, initial encounter; V43.52XA Car driver injured in collision with other type car in traffic accident, initial encounter; Y92.410 Unspecified street and highway as the place of occurrence of the external cause; I10 Essential (primary) hypertension
CPT/HCPCS: 99282

== ENCOUNTER 2019-07-12 23:03 | Emergency (ER) | payer OTHER ==
[~2019-07-12] VITALS: Ht 175.3 cm; Wt 63.5 kg
[~2019-07-12 23:03] MED LIST changes: +CYCLOBENZAPRINE10 MG ORAL
[2019-07-13] VITALS: BP 121/83
--- NOTE | 2019-07-13 00:10 | NUR ---
ED Nurse Note: pt walked in c/o bed bug bites, skin rash and itching, pt states he has bed bugs at his apartments and has been getting bed bug bites, reports itching and pain. will cont monitor.
--- NOTE | 2019-07-13 01:01 | Emergency Room Report ---
History of Present Illness General Chief Complaint: General Complaint Present Illness HPI Patient is a 48-year-old male presents after increased skin rash. Patient gradual onset of symptoms. He reports having multiple areas of skin bites. He reports having generalized itchiness. He denies any current complaints. Reports having multiple areas of bugs in his living quarters. Allergies: Coded Allergies: NO KNOWN ALLERGIES (Unverified Allergy, Unknown, 07/07/15) Patient History Past Medical History: see triage record Reviewed Nursing Documentation: PMH: Agreed; PSxH: Agreed Nursing Documentation-PMH Hx Hypertension: Yes Hx Pacemaker: No Hx Asthma: No Hx COPD: No Hx Diabetes: No Hx Cancer: No Hx Gastrointestinal Problems: No Hx Dialysis: No Hx Cerebrovascular Accident: No Hx Seizures: No Review of Systems All Other Systems: negative except mentioned in HPI Physical Exam Vital Signs Date Time Temp Pulse Resp B/P (MAP) Pulse Ox O2 Delivery O2 Flow Rate FiO2 07/12/19 23:12 98.1 103 20 121/83 (96) 96 Room Air Sp02 EP Interpretation: reviewed, normal General Appearance: normal inspection, well appearing, no apparent distress, alert, obese Head: atraumatic ENT: normal ENT inspection, hearing grossly normal, normal voice Neck: normal inspection, full range of motion, supple, no bony tend Respiratory: normal inspection, lungs clear, normal breath sounds, no respiratory distress, no retraction, no wheezing Cardiovascular #1: regular rate, rhythm, no edema Gastrointestinal: normal inspection, normal bowel sounds, non tender, soft, no guarding, no hernia Genitourinary: no CVA tenderness Musculoskeletal: normal inspection, back normal, normal range of motion Neurologic: alert, responsive, speech normal, normal inspection Psychiatric: normal inspection, judgement/insight normal, mood/affect normal Skin: other - Bilateral lower extremity with some scarring consistent with prior insect bites. No erythematous or current new appearing papular lesions Medical Decision Making Last Vital Signs Date Time Temp Pulse Resp B/P (MAP) Pulse Ox O2 Delivery O2 Flow Rate FiO2 07/12/19 23:12 98.1 103 20 121/83 (96) 96 Room Air Status: improved Disposition: HOME, SELF-CARE Condition: Stable Referrals: [facility],REFERRING (PCP) Eloy Geronimo MD Jul 13, 2019 01:01
[2019-07-13] MEDS ORDERED: VISTARIL10 MG ORAL (01:03)
[2019-07-13 01:05] VITALS: BP 126/83
--- NOTE | 2019-07-13 01:05 | NUR ---
ED Nurse Note: Pt cleared to be d/c per ER provider, pt discharge and aftercare instruction provided w/ prescription sent electronically, pt education done via discussion and handout, pt advised to follow up with pcp or return to ED if changes in condition, pt verbalized understanding, left w/ all belongings, ambulatory w/ steady gait, vss, id band removed.
== END 2019-07-13 01:05 | disposition home or self-care (01) ==
LOC: EMR 23:30
DX: R21 Rash and other nonspecific skin eruption (principal); E66.9 Obesity, unspecified; S80.862A Insect bite (nonvenomous), left lower leg, initial encounter; S80.861A Insect bite (nonvenomous), right lower leg, initial encounter; W57.XXXA Bitten or stung by nonvenomous insect and other nonvenomous arthropods, initial encounter; Y92.9 Unspecified place or not applicable; I10 Essential (primary) hypertension
CPT/HCPCS: 99282